=== PATIENT | female | born 1980 | race Caucasian/White ===

== ENCOUNTER 2022-01-30 11:50 | Outpatient (CLI) | payer OTHER ==
[2022-01-30 18:13] LABS: THYROID STIMULATING HORMONE < 0.08 uIU/mL (0.34-5.60)
[2022-01-30 18:14] LABS: FREE T3 5.83 pg/mL (2.5-3.9)
[2022-01-30 18:15] LABS: FREE T4 (FREE THYROXINE) 1.77 ng/dL (0.58-1.64)
== END 2022-01-30 11:51 | disposition home or self-care (01) ==
LOC: LAB.N 11:50
PROVIDERS: ATTEND Nurse Practitioner
DX: R79.89 Other specified abnormal findings of blood chemistry (principal)
CPT/HCPCS: 36415; 84439; 84443; 84481; 86376

== ENCOUNTER 2022-11-07 11:26 | Outpatient (CLI) | payer OTHER ==
[2022-11-07 17:42] LABS: BASOPHILS # (AUTO) 0.1 10^3/uL (0.0-0.1); BASOPHILS % (AUTO) 0.8 %; EOSINOPHILS # (AUTO) 0.2 10^3/uL (0.0-0.7); EOSINOPHILS % (AUTO) 2.8 %; HGB - HEMOGLOBIN 13.8 g/dL (12.0-16.0); LYMPHOCYTES # (AUTO) 2.7 10^3/uL (1.5-3.5); LYMPHOCYTES % (AUTO) 31.8 %; MEAN CORPUSCULAR HEMOGLOBIN 28.1 pg (27.0-31.0); MEAN CORPUSCULAR HGB CONC 32.1 g/dL (32.0-36.0); MEAN CORPUSCULAR VOLUME 87.6 fL (81.0-99.0); MEAN PLATELET VOLUME 10.7 fL (7.9-10.8); MONOCYTES # (AUTO) 0.5 10^3/uL (0.0-1.0); MONOCYTES % (AUTO) 5.7 %; NEUTROPHILS % (AUTO) 58.7 %; PLT - PLATELET COUNT 318 10^3/uL (130-450); RED BLOOD COUNT 4.91 10^6/uL (4.20-5.40); RED CELL DISTRIBUTION WIDTH 12.7 % (12.0-15.0); WHITE BLOOD COUNT 8.5 x10^3/uL (4.8-10.8)
[2022-11-07 18:00] LABS: ALBUMIN 4.5 g/dL (3.2-5.5); BILIRUBIN,DIRECT 0.11 mg/dL (0.03-0.18); BILIRUBIN,TOTAL 0.6 mg/dL (0.2-1.0); TOTAL PROTEIN 8.1 g/dL (6.4-8.9)
== END 2022-11-07 11:27 | disposition home or self-care (01) ==
LOC: LAB.N 11:26
PROVIDERS: ATTEND Student in an Organized Health Care Education/Training Program
DX: E05.90 Thyrotoxicosis, unspecified without thyrotoxic crisis or storm (principal)
CPT/HCPCS: 36415; 80076; 84445; 85025

== ENCOUNTER 2023-08-12 12:02 | Outpatient (CLI) | payer BC, OTHER ==
[2023-08-12 17:39] LABS: BASOPHILS # (AUTO) 0.1 10^3/uL (0.0-0.1); BASOPHILS % (AUTO) 0.8 %; EOSINOPHILS # (AUTO) 0.2 10^3/uL (0.0-0.7); EOSINOPHILS % (AUTO) 3.7 %; HGB - HEMOGLOBIN 14.3 g/dL (12.0-16.0); LYMPHOCYTES % (AUTO) 32.6 %; MEAN CORPUSCULAR HEMOGLOBIN 27.3 pg (27.0-31.0); MEAN CORPUSCULAR HGB CONC 32.5 g/dL (32.0-36.0); MEAN CORPUSCULAR VOLUME 84.1 fL (81.0-99.0); MEAN PLATELET VOLUME 10.7 fL (7.9-10.8); MONOCYTES # (AUTO) 0.4 10^3/uL (0.0-1.0); MONOCYTES % (AUTO) 5.6 %; NEUTROPHILS # (AUTO) 3.5 10^3/uL (1.5-6.6); PLT - PLATELET COUNT 289 10^3/uL (130-450); RED BLOOD COUNT 5.23 10^6/uL (4.20-5.40); RED CELL DISTRIBUTION WIDTH 13.3 % (12.0-15.0); WHITE BLOOD COUNT 6.2 x10^3/uL (4.8-10.8)
[2023-08-12 18:03] LABS: ALBUMIN 4.4 g/dL (3.2-5.5); BILIRUBIN,DIRECT 0.17 mg/dL (0.03-0.18); BILIRUBIN,TOTAL 0.6 mg/dL (0.2-1.0); TOTAL PROTEIN 7.8 g/dL (6.4-8.9)
[2023-08-12 18:22] LABS: THYROID STIMULATING HORMONE 2.05 uIU/mL (0.34-5.60)
== END 2023-08-12 12:03 | disposition home or self-care (01) ==
LOC: LAB.N 12:02
PROVIDERS: ATTEND Student in an Organized Health Care Education/Training Program
DX: E05.90 Thyrotoxicosis, unspecified without thyrotoxic crisis or storm (principal)
CPT/HCPCS: 36415; 80076; 84439; 84443; 84445; 84481; 85025